=== PATIENT | male | born 1955 | race Caucasian/White ===

== ENCOUNTER 2017-12-10 09:55 | Day surgery (SDC) | payer BC ==
[~2017-12-10] VITALS: Ht 175.3 cm; Wt 129.9 kg
[2017-12-10] MEDS ORDERED: IOHEXOL 350 MG/ML 100 ML BTL (for Cath Lab) OTHER ONE (09:56)
[2017-12-10 11:22] VITALS: BP 141/109; PULSE 82; RESP 18; TEMP 98; O2SAT 97
[2017-12-10] MEDS ORDERED: VITA100018 PO (11:35)
[2017-12-10] MEDS ORDERED: VIAG100T PO (11:35)
[2017-12-10] MEDS ORDERED: TUMERIC (11:35)
[2017-12-10] MEDS ORDERED: MAGN100T4 (11:35)
[2017-12-10] MEDS ORDERED: CARV12.52 PO (11:35)
[2017-12-10] MEDS ORDERED: METF500T PO (11:35)
[2017-12-10] MEDS ORDERED: MULTTAB67 PO (11:35)
[2017-12-10 11:45] LABS: AUTOMATED NEUTROPHIL # 3.6 TH/MM3 (1.8-7.7); BASOPHIL % 0.8 % (0.0-2.0); EOSINOPHIL # 0.3 TH/MM3 (0-0.4); EOSINOPHIL % 4.9 % (0.0-4.0); HEMATOCRIT 47.2 % (39.0-51.0); HEMOGLOBIN 16.2 GM/DL (13.0-17.0); LYMPH % 20.9 % (9.0-44.0); LYMPHOCYTE # 1.2 TH/MM3 (1.0-4.8); MEAN CELL VOLUME 94.3 FL (80.0-100.0); MEAN CORPUSCULAR HEMOGLOBIN 32.3 PG (27.0-34.0); MEAN CORPUSCULAR HGB CONC 34.3 % (32.0-36.0); MEAN PLATELET VOLUME 8.7 FL (7.0-11.0); MONO % 10.5 % (0.0-8.0); MONOCYTE # 0.6 TH/MM3 (0-0.9); NEUT % 62.9 % (16.0-70.0); PLATELET COUNT 199 TH/MM3 (150-450); RED BLOOD COUNT 5.01 MIL/MM3 (4.50-5.90); RED CELL DISTRIBUTION WIDTH 13.5 % (11.6-17.2); WHITE BLOOD COUNT 5.8 TH/MM3 (4.0-11.0)
[2017-12-10 11:53] LABS: PROTHROMBIN TIME - PATIENT 10.1 SEC (9.8-11.6)
[2017-12-10 12:04] LABS: BICARBONATE 28.5 MEQ/L (21.0-32.0); CREATININE 0.84 MG/DL (0.60-1.30)
[2017-12-10] MEDS ORDERED: MIDAZOLAM HCL 5 MG/5 ML VIAL ONE (13:31)
[2017-12-10] MEDS ORDERED: NITROGLYCERIN INJ 5 ML ONE (13:34)
[2017-12-10] MEDS ORDERED: HEPARIN-NS/PF INJ 1,000 ML ONE (13:34)
[2017-12-10] MEDS ORDERED: HEPARIN SODIUM - IV 10,000 UNITS/10 ML VIAL ONE (13:34)
[2017-12-10] MEDS ORDERED: HEPARIN-NS/PF INJ 500 ML ONE (13:49)
--- NOTE | 2017-12-10 14:39 | CATHPROC ---
[facility] HIS Report Study Information Study Number Admission Scheduled Start Study Start [id number] Dec 10 2017 9:55AM 12/10/2017 Dec 10 2017 1:30PM [facility] Cardiac Catheterization Admit Source Facility Department Other [facility] - Regulator Tester Physician and Clinical Staff Initial Gabriele Byrnes Rip Tailer Lissette Palmer,RN Other Dez MylesRN Recorder Laurie Juarez ,RT(R) Scrub Aneesh Guajardo RCIS(BS) Procedures Performed Procedure Location (Site) Vessel Name Angiogram LV LV Ventricle Coronary Angiograms LCA Left Coronary Coronary Angiograms RCA Right Coronary L Heart Cath Equipment Time Construction Quality Control Manager Description Size Mfg Part Number Used/Scraped TRANSDUCER, TRUWAVE [id number] 13:31 SANDOVAL GOODEN * Used W/STOCKCOCK *[id number] 700-500DX 14:23 Pug PharmVA MEDICAL VASCADE, FR5 CLOSURE SYSTEM FR 5 Used *[id number] 534-548T *[id number] 534-520T *[id number] [id number] *[id number] 13:31 Immunovaccine INDUSTRIES PACK, CCL CUSTOM * Used *[id number] 13:31 Immunovaccine PACER PEN, SKIN DUAL W/ RULER * Used *[id number] 13:31 [employer] WIRE, 3MMJ .035 180CM 180CM Used *[id number] PROBE COVER, STERILE [id number] 13:31 Seva Coffee * Used ULTRASOUND W/ GEL *[id number] 13:31 NAMIC MANIFOLD, 4 PORT * Used *[id number] 13:31 NAMIC TUBING, HIGH PRESSURE 48" 48" Used *[id number] 13:31 NYCOMED OMNIPAQUE, 350 MG, 150ML 150ML [id number] Used [id number] 13:31 [employer]MAN [employer] BLANKET,WARM AIR CCL * Used *[id number] 13:31 TERUMO MEDICAL SHEATH, FR5 TERUMO (10CM) FR 5 Used *[id number] Equipment Model, Serial, Lot Number and Expiration Data Description Model Number Serial Number Lot Number Expiration Date VASCADE, FR5 CLOSURE SYSTEM [id number] History: Current Medications Medication Dosage/Unit Route Frequency Last Date/Time Taken CARVEDILOL Glucophage Viagra VITAMIN D History: Allergies Allergy Reaction No Known Allergies History: Risk Factors Family History of Hypertension Dyslipidemia Previous CT Previous Heart Failure Premature CAD Yes No No No No Prior Valve Prior PCI Prior CABG Surgery No No No Cerebrovascular Peripheral Artery Chronic Lung On Dialysis Diabetes Diabetes Therapy Disease Disease Disease No No Yes No Yes Oral History: Stress Tests Stress or Imaging Studies Performed Yes Standard Exercise Stress Test No Stress Echo No Stress Test SPECT Stress Test SPECT Result Yes Positive Labs Hgb (g/dl) Hct (%) WBC (l/cumm) Platelets (thousands) 11.60-17.00 35.00-51.00 4.00-11.00 150.00-450.00 16.2 47.2 5.8 199 Glucose (mg/dl) BUN (mg/dl) Creatinine (mg/dl) BUN:Creatinine (1:x) 74.00-106.00 7.00-18.00 0.50-1.30 10.00-20.00 102 14 0.8 17.5 Na (meq/l) K (meq/l) 136.00-145.00 3.50-5.10 137 4.4 INR (PTT:PT) 0.90-1.10 1 CPK-MB (ng/ML) 0.50-3.60 Not Drawn Medication Medication Total Dose (Bolus/Oral) Medication Total Dosage/Unit 1% XYLOCAINE 20 mL FENTANYL 100 mcg OXYGEN 4 l/min VERSED 5 mg Medications (Bolus/Oral) Medication Time Given Dosage/Unit Administered By Reason VERSED 12/10/2017 1:42:17 PM 2 mg Lissette Palmer 2 mg VERSED given in lab by Lissette Palmer RN in Left Antecubital via Peripheral IV. Ordered by Gabriele Cho. FENTANYL 12/10/2017 1:43:36 PM 50 mcg Lissette Palmer 50 mcg FENTANYL given in lab by Lissette Palmer RN in Left Antecubital via Peripheral IV. Ordered by Gabriele Landeros. VERSED 12/10/2017 1:45:00 PM 1 mg Dez Myles 1 mg VERSED given in lab by Dez Myles RN in Left Antecubital via Peripheral IV. Ordered by Gabriele Mccallum. OXYGEN 12/10/2017 1:46:53 PM 4 l/min Lissette Palmer 4 l/min OXYGEN given in lab by Lissette Palmer RN via Nasal. Ordered by Gabriele Landeros. VERSED 12/10/2017 1:54:12 PM 1 mg Shameka, Dez 1 mg VERSED given in lab by Dez Myles RN in Left Antecubital via Peripheral IV. Ordered by Gabriele Mccallum. FENTANYL 12/10/2017 1:55:15 PM 25 mcg Shameka, Dez 25 mcg FENTANYL given in lab by Dez Myles RN via Peripheral IV. Ordered by Gabriele Landeros. FENTANYL 12/10/2017 2:04:14 PM 25 mcg Shameka, Dez 25 mcg FENTANYL given in lab by Dez Myles RN via Peripheral IV. Ordered by Gabriele Landeros. 1% XYLOCAINE 12/10/2017 2:07:29 PM 20 mL Gabriele Landeros 20 mL 1% XYLOCAINE given in lab by Gabriele Landeros via Subcutaneous. Ordered by Gabriele Landeros. VERSED 12/10/2017 2:08:17 PM 1 mg Shameka, Dez 1 mg VERSED given in lab by Dez Myles RN in Left Antecubital via Peripheral IV. Ordered by Gabriele Mccallum. Medication (Drip) Medication Time Given Dosage/Unit Concentration/Unit Diluent (ml) Solutio n IV Solutions 12/10/2017 1:29:56 PM 0 mL (IV) 500 NaCl .9 Patient arrived on IV Solutions in Right Antecubital via Peripheral IV. Pump/Drip Flow = 20 ml/hr usi ng NaCl .9. Initial Case Assessment Cardiovascular HR Rhythm NIBP Chest Pain 82 sr 167/101 0 Circulatory - Right Pulses Dorsalis Pedis Femoral 2 2 Scale (0,1,2,3,4,d) Circulatory - Left Pulses Dorsalis Pedis Femoral 2 2 Scale (0,1,2,3,4,d) Neurological State Oriented to time-place- Alert Moves all extremities person Respiration - General Respiration Rate SpO2 (%) (B/min) 20 97 Final Case Assessment Cardiovascular HR Rhythm NIBP Chest Pain 82 sr 167/101 0 Circulatory - Right Pulses Dorsalis Pedis Femoral 2 2 Scale (0,1,2,3,4,d) Circulatory - Left Pulses Dorsalis Pedis Femoral 2 2 Scale (0,1,2,3,4,d) Neurological State Oriented to time-place- Alert Moves all extremities person Respiration - General Respiration Rate SpO2 (%) (B/min) 20 97 Chronological Log Time Study Chronological Log 13::37 Patient arrived via Bed. 13::41 Patient Name, D.O.B, / Armband Verified By R.N. 13:29:45 Consent signed by the physician and the patient and verified by the Regulator Tester staff. 13:29:46 Pre-op and post- op instructions given; patient acknowledges understanding of instructions. 13::47 Verbal Stimulation=2 Physical Stimulation=2 Airway=2 Respiration=2 TOTAL=8. (0=absent, 1=li mited, 2=present) 13:29:48 Presedation assessment performed by Regulator Tester RN. 13:29:50 Patient has been NPO for More than 6Hrs. 13:29:51 Skin Breakdown-none 13:29:53 Estevan Prominences Protected 13:29:55 A # 20 IV was noted in the Antecubital (left). Grade = patent 13:29:56 Patient arrived on IV Solutions in Right Antecubital via Peripheral IV. Pump/Drip Flow = 20 ml/hr using NaCl .9. 13:29:57 History and physical on the chart or being dictated. Vitals capture started with the following parameters, Patient=Adult, Interval=5 min, Initial Pr impbmt=081 mmHg, 13:34:54 Deflation Rate=5 mmHg, Cuff placed on Left Arm 13:35:25 Bilateral groins prepped with 2% chlorhexidine, and draped after a 3 minute waiting time. 13:36:17 HR=88 bpm, JVWJ=834/101 mmhg, SpO2=97 %, Resp=15 B/min Assessment: Initial Case, HR=82 BPM, Rhythm=sr, DTJX=889/101 mmhg, Chest Pain=0 Right Pulses: Clifford Ped=2, Femoral=2 13:36:58 Left Pulses: Clifford Ped=2, Femoral=2 Neurological: State=Alert, Ox3, RAMON Respiration: Resp=20 B/min, SpO2=97 % 13:37:36 Reference ECG taken 13:40:39 HR=78 bpm, FGHZ=814/103 mmhg, SpO2=98.0 %, Resp=15 B/min, Pain=0, Bailee=10, Pierre=2 13:41:37 paged 13:42:17 2 mg VERSED given in lab by Lissette Palmer RN in Left Antecubital via Peripheral IV. Orde red by Gabriele Landeros. 50 mcg FENTANYL given in lab by Lissette Palmer RN in Left Antecubital via Peripheral IV. Orde red by Leti, 13:43:36 Gabriele. 13:45:00 1 mg VERSED given in lab by Dez Myles RN in Left Antecubital via Peripheral IV. Ordered by Gabriele Landeros. 13:45:40 HR=79 bpm, YHUH=765/92 mmhg, SpO2=96.0 %, Resp=18 B/min, Pain=0, Bailee=10, Pierre=2 13:46:04 Pressure channel 1 zeroed. 13:46:53 4 l/min OXYGEN given in lab by Lissette Palmer RN via Nasal. Ordered by Otakar. Leti 13:50:39 HR=77 bpm, UOOW=468/95 mmhg, SpO2=96.0 %, Resp=15 B/min, Pain=0, Bailee=10, Pierre=2 13:54:12 1 mg VERSED given in lab by Dez Myles RN in Left Antecubital via Peripheral IV. Ordered by Gabriele Landeros. 13:55:15 25 mcg FENTANYL given in lab by Dez Myles RN via Peripheral IV. Ordered by Belén Landeros 13:55:36 HR=81 bpm, WLAN=049/91 mmhg, SpO2=86.0 %, Resp=28 B/min, Pain=0, Bailee=10, Pierre=2 14:00:35 HR=80 bpm, SDZF=999/91 mmhg, SpO2=98.0 %, Resp=12 B/min, Pain=0, Bailee=10, Pierre=2 14:02:25 arrived. 14:04:14 25 mcg FENTANYL given in lab by Dez Myles RN via Peripheral IV. Ordered by Belén Landeros 14:05:32 HR=84 bpm, ZERH=725/96 mmhg, SpO2=95.0 %, Resp=16 B/min, Pain=0, Bailee=10, Pierre=2 Time Out. Correct patient, correct procedure, correct physician, labs, allergies, and equipment verified with cardiac cath lab radiology technologist 14:07:14 team present. Fire risk assesment completed (see hard stop sheet for coding). Time Out Conc urred by and individual staff in procedure. 14:07:26 Case Start 14:07:29 20 mL 1% XYLOCAINE given in lab by Gabriele Landeros via Subcutaneous. Ordered by Jj Landeros. 14:08:17 1 mg VERSED given in lab by Dez Myles RN in Left Antecubital via Peripheral IV. Ordered by Gabriele Landeros. 14:09:16 Access site was Right Femoral Artery. 14:09:22 A SHEATH, FR5 TERUMO (10CM) FR 5 was advanced into the Fem Art (right) using the Percutaneo us technique. A PIGTAIL ANG. INFINITI CATHETER FR 5 was advanced over a wire. OMNIPAQUE, 350 MG, 150ML 150ML was used 14:10:24 for injections. 14:10:38 HR=85 bpm, UUKM=195/89 mmhg, SpO2=98.0 %, Resp=11 B/min, Pain=0, Bailee=10, Pierre=2 Recorded Pressure: LV, HR=82, Condition=Condition 1 14:10:49 (Left Ventricle) LV 146/10/18 14:11:27 The LV was injected at 12 cc/sec for a total of 36. OMNIPAQUE, 350 MG, 150ML 150ML used. Recorded Pressure: LV, Ao, HR=82, Condition=Condition 1 14:12:39 (Left Ventricle) LV 134/6/12, (Aorta) Ao 149/85/113 After removing the current catheter a JL 4.0 INFINITI CATHETER FR 5 was advanced over a WIRE, 3 MMJ .035 180CM 14:13:20 180CM. 14:14:31 The LCA was injected and visualized at various angles. OMNIPAQUE, 350 MG, 150ML 150ML used . 14:15:32 HR=82 bpm, SFGU=804/94 mmhg, SpO2=98.0 %, Resp=10 B/min, Pain=0, Bailee=10, Pierre=2 After removing the current catheter a AR MOD INFINITI CATHETER FR 5 was advanced over a WIRE, 3 MMJ .035 180CM 14:16:33 180CM. 14:17:31 The RCA was injected and visualized at various angles. OMNIPAQUE, 350 MG, 150ML 150ML used . 14:18:30 Catheter was removed 14:18:34 Case End 14:19:00 An injection in the Fem Art (right) was made through the SHEATH, FR5 TERUMO (10CM) FR 5. 14:20:38 HR=86 bpm, MZPF=494/90 mmhg, SpO2=98.0 %, Resp=32 B/min 14:26:14 HR=83 bpm, DAVJ=813/100 mmhg, SpO2=99.0 %, Resp=22 B/min, Pain=0, Bailee=10, Pierre=2 Assessment: Final Case, HR=82 BPM, Rhythm=sr, XDIZ=676/101 mmhg, Chest Pain=0 Right Pulses: Clifford Ped=2, Femoral=2 14:27:04 Left Pulses: Clifford Ped=2, Femoral=2 Neurological: State=Alert, Ox3, RAMON Respiration: Resp=20 B/min, SpO2=97 % 14:27:09 Catheter(s) removed without difficulty 14:27:15 VASCADE, FR5 CLOSURE SYSTEM FR 5 placement in the Fem Art (right) 14:27:21 Sterile dressing applied to site 14:27:22 No case complications noted. 14:27:34 Bedside Report will be given. 14:27:50 A Left Heart Cath was performed. 14:30:40 HR=82 bpm, ERSK=115/102 mmhg, SpO2=98.0 %, Resp=37 B/min, Pain=0, Bailee=10, Pierre=2 14:36:28 Patient moved to [facility] End Study - Contrast Media Used In Study Contrast Total Opened (mL) Total Used (mL) Total Wasted (mL) Omnipaque 100 100 0 End Study - Maximum Contrast Load Max Contrast Load (mL) 811.9 End Study - Radiation Exposure Fluoro Time (minutes) 1.2 End Study - Sheaths Sheaths Pulled By Sheath Hold Time (min) Aneesh Guajardo End Study - Patient Disposition Complications Transferred To Interventional Outcome No Telemetry Bed No attempt made
--- NOTE | 2017-12-10 15:33 | MA ---
cc: Gabriele Landeros MD DATE: 12/10/2017 INDICATIONS: 1. Angina, abnormal intermediate probability nuclear myocardial perfusion study, class III angina. PROCEDURE PERFORMED: 1. Retrograde left heart catheterization with left ventriculography and selective coronary angiography. 2. Moderate sedation. ACCES SITE: Right femoral artery using ultrasound guidance. EQUIPMENT USED: 5-[place]icar[place]uan pigtail catheter, 5-[place] JL4 and AR modified coronary artery catheters. MEDICATIONS: Versed IV, fentanyl IV. CONTRAST: Omnipaque 100 mL COMPLICATIONS: None. BLOOD LOSS: Less than 10 mL METHOD OF HEMOSTASIS: Vascade closure. FINDINGS: A. HEMODYNAMICS: Heart rate 83 beats per minute. Left ventricular end-diastolic pressure is 6 mmHg. Left ventricle 140/6. Aorta 140/85/113. B. LEFT VENTRICULOGRAPHY: Left ventricular ejection fraction 60%. Wall motion normal. No mitral regurgitation. C. CORONARY ANGIOGRAPHY: Left main coronary artery patent. Left anterior descending artery patent. D1 patent. Left circumflex artery is patent. OM1 patent, OM2 patent. Right coronary artery is a dominant vessel, which has a 30% eccentric stenosis in the proximal portion. PDA patent. PLV patent. DIAGNOSES: 1. Mild nonobstructive coronary artery disease with 30% stenosis of the proximal right coronary artery. 2. Preserved left ventricular systolic function. DISPOSITION: Mr. Reynoso was found to have evidence of mild nonobstructive stenosis in the right coronary artery. I recommend aggressive modification of his cardiac risk factors. He will be discharged later today. I will see him back for followup in our office after discharge. Gabriele Landeros MD [facility]/SB , 02:29 PM , 03:32 PM NANCY
--- NOTE | 2017-12-11 14:05 | EKG ---
Date Performed: 12/10/2017 Time Performed: 11:24:02 PTAGE: 62 years EKG: Sinus rhythm . Possible septal infarct - age undetermined Abnormal ECG NO PREVIOUS TRACING DOCTOR: Wilman Tipton Interpretating Date/Time 12/11/2017 14:00:57
== END 2017-12-10 17:57 | disposition home or self-care (01) ==
LOC: HDOC 09:55 → HDIC 09:57 → HDOC 17:57
PROVIDERS: ATTEND Internal Medicine Interventional Cardiology
DX: I25.10 Atherosclerotic heart disease of native coronary artery without angina pectoris (principal); I10 Essential (primary) hypertension; I73.9 Peripheral vascular disease, unspecified; E03.9 Hypothyroidism, unspecified; E66.9 Obesity, unspecified; E11.9 Type 2 diabetes mellitus without complications; Z79.84 Long term (current) use of oral hypoglycemic drugs; Z68.41 Body mass index [BMI] 40.0-44.9, adult
CPT/HCPCS: 80048; 85025; 85610; 85730; 93005; 93458; 99152; 99153; C1760; C1769; C1893; G0269; J1644; J2250; J3010; Q9967